=== PATIENT | female | born 1985 ===

== ENCOUNTER 2023-03-01 20:45 | Outpatient (REF) | payer BC, SELFPAY ==
--- OUTSIDE RECORDS SUMMARY | 2023-03-02 10:13 | XMS_ITS | CCD ---
Author Name Unknown Address [address] [place] [address] Organization [facility] Care Team Providers Care Portable Pinch Riveter Name Role Phone WILIAM BOB Referring Unavailable NAKUL RIVAS Referring Unavailable Results Test Name Value Interpretation Reference Range Facil ity Coding Summary.on 10-03-2019 Coding Summary. CODING DATE: 020 [facility] STATUS: Home (Routine DC) PAYOR: [place] ADMIT DX: REASON FOR VISIT DX: M79.10 Myalgia, unspecified site FINAL DX: PRINCIPAL: M79.10 Myalgia, unspecified site SECONDARY: Z11.59 Encounter for screening for other viral diseases PYMT PROC APC STAT DESCRIPTION DOCTOR NAME DATE NOTE: The code number assigned matches the documented diagnosis and / or procedure in the patient's chart. However, the narrative phrase printed from the coding software may appear abbreviated, or result in slightly different terminology. Coded By: Arminda Richey CphT Date Saved: 10/03/2019 10:20 am Normal [facility] Physician Orderon 09-23-2019 Physician Order [id number] D:127 Normal [facility] XR ABDOMEN (KUB) (SINGLE AP VIEW)on 08-15-2018 XR ABDOMEN (KUB) (SINGLE AP VIEW) EXAMINATION: ONE SUPINE XRAY VIEW(S) OF THE ABDOMEN 08/15/2018 2:59 pm COMPARISON: July 10, 2017 HISTORY: ORDERING SYSTEM PROVIDED HISTORY: Renal lithiasis TECHNOLOGIST PROVIDED HISTORY: renal stones FINDINGS: Punctate calcification overlies the lower pole of the left kidney likely unchanged. No abnormally dilated loops of small bowel. IMPRESSION: Punctate nonobstructing left renal calculus likely unchanged. Interpreted by: Brice Brooke MD Signed by: Brice Brooke MD 08/15/18 Final result Normal [facility] Cage Tender Cytology Reporton 2018 Cage Tender Cytology Report Clinical Information Specimen Collection Date: 03-23-18 LMP: 02-28-18 Type of specimen: Cervical/endocervical HPV testing is being performed at [facility] and will be reported out in the laboratory [facility] result section. Purpose of smear: Regular periodic exam/screening Pap. GY Specimen A Liquid Prep Pap Smear, with HPV Adequacy Alpha Response SAT ANATOMICPATHOLOGY Endocervical Alpha Response EC/TZONE + ANATOMICPATHOLOGY Statement of Adequacy Satisfactory for Evaluation. Transformation Zone Present. Diagnosis Alpha Response GY NILM/ORG/GV ANATOMICPATHOLOGY Diagnosis NEGATIVE FOR INTRAEPITHELIAL LESION OR MALIGNANCY Predominance of Coccobacilli consistent with shift in vaginal bibiana (probably Gardnerella vaginalis) [id number] NAL Completed by: FRANCA Aranda (ASCP) (Electronically signed by) 03/27/18 09:46 EST GY Disclaimer Interp The PAP smear is a screening test with an inherent, but low, probability of error. A negative report indicates a low probability of significant cervical pathology. Your patient should be reminded to consult you immediately if she experiences new symptoms and to continue having regular PAP smears in the future. GY Disclaimer Alpha Cage Tender Disclaimer ANATOMICPATHOLOGY Normal [facility] Comment on above: Performed By: #### G YNCYTREP #### [facility] (DEFAULT) [address] [place] [address] HPV DNAon 03-27-2018 HPV DNA Scrn Negative Normal Negative [facility] Comment on above: Result Comment: The APTIMA HPV Assay is an in-vitro nucleic acid amplification test for the qualitative detection of HPV in cervical specimens. The APTIMA HPV Assay should be interpreted in conjunction with other laboratory and clinical data available to the clinician. The APTIMA HPV Assay detects E6/E7 viral messenger RNA (mRNA) of the high-risk HPV types 16, 18, 31, 33, 35, 39, 45, 51, 52, 56, 58, 59, 66, and 68. Detection of high-risk HPV mRNA is dependent on the number of copies present in the specimen and may be affected by specimen collection methods, patient factors, stage of infection, and the presence of interfering substances. Performed By: #### C [id number] #### [facility] [address] [place] [id number] Gynecology Office/Clinic Not pavel 03-23-2018 Gynecology Office/Clinic Note Chief Complaint Annual History of Present Illness Control: Vasectomy Last Menstrual Period: 02/28/18 Frequency of Menstruation: regular Abnormal vaginal discharge: No Breast lumps/pain: No Clotting with periods: No Heavy periods: Yes Hot flashes: No Irregular periods: No Night sweats: No Painful periods: Yes Painful sex: No Pelvic pain: No Spotting: No Vaginal dryness: No Vaginal itch/burning/odor: No Additional HPI details: 32 y/o, G0. PAP 02/18/15, WNL. HX endometriosis. DX lap x 2 2015. She was treated with depo in the past and also with Loestrin but had AUB. Menses Q 28 days, bleeds 5-6 days, 2 heavy days, change tampon Q 1-2 hours, denies clotting, + cramping, takes Tylenol/ibuprofen. Colonoscopy 10/2017, Q 2 years, ulcerative colitis PCP Dr. Jt restrepo [place] Review of Systems Head Headaches: No Migraines: No Cardio Respiratory Heart Irregularity: No Shortness of Breath: No Endocrine Abnormal weight gain: No Abnormal weight loss: No Fatigue: No ENT Congestion: No Nasal drainage: No Sore throat: No Vertigo: No Eyes Corrective lenses: Yes Gastrointestinal Abdominal Pain: No Bloating: No Change in bowel habits: No Reflux/heartburn: No Hematologic/Lymphatic Bleeding tendencies: No Bruising: No Thromboembolism: No Integumentary Acne: No Hair changes: No Lesions: No Moles: No Musculoskeletal Back pain: No Joint pain: No Muscle aches: No Psycho Social Anxiety: No Depression: No Homicidal Ideation: No Sleep Problems: No Suicidal Ideation: No Urinary Nocturia: No Painful urination: No Urgency: No Urinary frequency: No Urinary Incontinence: No Physical Exam Vitals & Measurements BP: 110/78 HT: 166.6 cm WT: 87.1 kg BMI: 31.38 General: Alert and oriented, no acute distress. Eye: PERRL, EOMI, normal conjunctiva. HEENT: Normocephalic, normal hearing, no scleral icterus. Neck: Supple, non-tender, no thyromegaly. Lungs: Clear to auscultation, non-labored respiration. Heart: Normal rate, regular rhythm, no murmur, gallop or edema. Abdomen: Soft, non-tender, non-distended, no masses. Musculoskeletal: Normal range of motion and strength, no tenderness or swelling. Skin: Skin is warm, dry and pink, no rashes or lesions. Neurologic: Awake, alert, and no acute distress. Psychiatric: Cooperative, appropriate mood and affect. Breast exam: no masses, no tenderness, no skin changes or nipple discharge. External Genitalia: normal urethral meatus, no lesions, vulvar skin intact. Genitourinary:Normal vaginal mucosa, + thin, malodorous, white abnormal discharge, cervix intact without lesions or bleeding. No cystocele or rectocele. Pap smear done. Bimanual exam: Normal sized, non-tender, mobile uterus. No adnexal tenderness or masses. Additional Vitals No qualifying data available. Assessment/Plan 1. Encounter for gynecological examination with abnormal finding Ordered: Pathology Pap Smear Request 2. Bacterial vaginitis Ordered: metroNIDAZOLE, 1 tabs, Oral, q12hr, do not drink alcohol, X 7 days, # 14 tabs, 0 Refill(s), 03/30/18 16:02:00 [facility], Pharmacy: [facility] [id number] Physician Comments 1. Recommend monthly self breast exam and call with any changes or concerns. 2. Recommend healthy diet. 3. Recommend exercise 30 min 5 days weekly. 4. Recommend vitamin D 1000-2000IU daily. 5. You will be notified of pap smear results with in 1-2 weeks. Please call the office if you have not been notified with in 2 weeks. 6. Suspect BV. Recommend treatment. Offered Metrogel or Flagyl. She requests Flagyl. Recommend 500mg BID x one week. Avoid alcohol. Problem List/Past Medical History Ongoing Endometriosis Kidney stone Ulcerative colitis Historical No qualifying data Procedure/Surgical History Robotic laparosopy, endometriosis resection,bilat ureterolysis, chromopertubation (05/12/2015), Robotic DX Lap, chromopertubation, ablation of endometriosis, L ovarian cystectomy (01/2012), COLONOSCOPY W/CONTROL BLEED. Medications balsalazide 750 mg oral capsule, 2250 mg, 3 caps, Oral, TID Flagyl 500 mg oral tablet, 500 mg, 1 tabs, Oral, q12hr Allergies predniSONE (Hives) Social History Alcohol Never Home/Environment Single Nutrition/Health Caffeine intake amount: 1 drink daily. Sexual Sexually active: Yes. History of sexual abuse: No. Substance Abuse Denies All Tobacco Never smoker Family History Cancer: Negative: Mother, Father, Grandfather (M), Grandfather (P), Grandmother (M) and Grandmother (P). Diabetes: Mother.Negative: Father, Grandfather (M), Grandfather (P), Grandmother (M) and Grandmother (P). Hyperlipidemia: Father. Hypertension: Mother and Grandmother (M). Kidney stones: Negative: Mother, Father, Grandfather (M), Grandfather (P), Grandmother (M) and Grandmother (P). Electronically signed by ___ Jairo Sanches PA-C 03/23/18 16:06 EST Normal [facility] Ambulatory Patient Education on 03-21-2018 Ambulatory Patient Education Patient Education Materials Name: Mckayla Duarte Current Date: 03/21/2018 15:09:31 [facility] : 1985 The following sheet(s) are the Patient Education Leaflets for Mckayla Duarte Oncology Breast Health: Breast Self-Awareness What is breast self-awareness? Breast self-awareness is knowing how your breasts normally look and feel. Your breasts change as you go through different stages of your life. So it's important to learn what is normal for your breasts. Breast self-awareness helps you notice any changes in your breasts right away. Report any changes to your healthcare provider. Why is breast self-awareness important? Many experts now say that women should focus on breast self-awareness instead of doing a breast self-examination (BSE). These experts include the [place] [employer], the U.S. Preventive Services Task Force, and the [place] [employer] of Obstetricians and Gynecologists. Some experts even advise not teaching women to do a BSE. That's because research hasn't shown a clear benefit to doing BSEs. Breast self-awareness is different than a BSE. Breast self-awareness isn't about following a certain method and schedule. It's about knowing what's normal for your breasts. That way you can notice even small changes right away. If you see any changes, report them to your healthcare provider. Changes to look for Call your healthcare provider if you find any changes in your breasts that concern you. These changes may include: ? A lump ? Nipple discharge other than breastmilk, especially a bloody discharge ? Swelling ? A change in size or shape ? Skin irritation, such as redness, thickening, or dimpling of the skin ? Swollen lymph nodes in the armpit ? Nipple problems, such as pain or redness If you find a lump Contact your provider if you find lumpiness in one breast, feel something different in the tissue, or feel a definite lump. Sometimes lumpiness may be due to menstrual changes. But there may be reason for concern. Your provider may want to see you right away if you have: ? Nipple discharge that is bloody ? Skin changes on your breast, such as dimpling or puckering It's normal to be upset if you find a lump. But it's important to contact your provider right away. Remember that most breast lumps are benign. This means they are not cancer. ? 1200-4608 [employer]. [address] [place], [place] [address]. All rights reserved. This information is not intended as a substitute for professional medical care. Always follow your healthcare professional's instructions. Normal [facility] Encounters Encounter Date Encounter Type Care Provider Facility Start: 08-15-2018 End: 08-18-2018 Patient encounter procedure WILIAM BOB [facility] Procedures Date Procedure Procedure Detail Performing Clinician Start: 08-15-2018 Radiologic exam abdo men 1 view WILIAM BOB Payers Date Payer Category Payer Unknown [id number] 1985 Unknown [id number] 1985 Unknown [id number] Summary Purpose Family History No Family History Records FoundNo Family History Records FoundNo Family History Records Found Advance Directives No Advanced Directives Records FoundNo Advanced Directives Records FoundNo Advanced Directives Records Found Additional Source Comments INFORMATION SOURCE (unrecogn ized section and content) DATE CREATED AUTHOR 08/18/2018 Sophia Linares [facility] DATE CREATED AUTHOR AUTHOR'S ORGANIZ ATION 01/11/2019 [facility] DATE CREATED AUTHOR AUTHOR'S ORGANIZ ATION 10/06/2019 [facility] FOR RECORDS PERTAINING TO PATIENTS WHO ARE OR HAVE BEEN ENROLLED IN A CHEMICAL DEPENDENCY/SUBSTANCEABUSE PROGRAM, SOME INFORMATION MAY BE OMITTED. This clinical summary was aggregated from multiple sources. Caution should be exercised in using it in the provision of clinical care. This summary normalizes information from multiple sources, and as a consequence, information in this document may materially change the coding, format and clinical context of patient data. In addition, data may be omitted in some cases. CLINICAL DECISIONS SHOULD BE BASED ON THE PRIMARY CLINICAL RECORDS. [facility] [employer] [facility]. provides no warranty or guarantee of the accuracy or completeness of information in this document.
[2023-03-08 11:08] LABS: Age Gdln ACOG Testing Note (.); HPV Aptima Negative (Negative); IGP, Aptima HPV, rfx 16/18,45 Note (.)
== END 2023-03-01 20:46 | disposition home or self-care (01) ==
LOC: LAB 20:45
PROVIDERS: Visit Provider Obstetrics & Gynecology
DX: Z01.419 Encounter for gynecological examination (general) (routine) without abnormal findings (principal)
CPT/HCPCS: 87624; G0145

== ENCOUNTER 2023-03-16 08:00 | Outpatient (OUT) | payer BC, SELFPAY ==
--- NOTE | 2023-03-16 08:02 | US_ITS ---
The [place] [id number] Patient Name: MCKAYLA VELAZQUEZ MRN: [id number] date: 1985 Sex: F Assigned Patient Location: Current Patient Location: [place] Accession/Order Number: [id number] Exam Date: 03/16/2023 08:01 Report Date: 03/16/2023 09:06 At the request of: CHAUNCEY WHALYE Procedure: US pelvis w/ transvaginal EXAMINATION: US pelvis w/ transvaginal HISTORY: DYSMENORRHEA COMPARISON: No relevant comparison available. FINDINGS: The uterus is normal in size, contour and myometrial echotexture measuring 7.0 x 3.3 x 5.3 cm. No focal myometrial mass The endometrium measures 8 mm, normal. The right ovary is normal in size and echotexture 2.7 x 1.5 x 2.3 cm. Normal color and Doppler flow. Area of anechoic echogenicity measuring 3.0 x 2.3 x 2.9 cm adjacent to the right ovary The left ovary is normal in size, contour and echotexture measuring 3.2 x 1.9 x 1.9 cm. Normal color and Doppler flow. No free fluid US/US pelvis w/ transvaginal IMPRESSION: 3 cm right ovarian simple cyst Electronically authenticated by: NELIDA TOMLINSON Date: 03/16/2023 09:06
--- OUTSIDE RECORDS SUMMARY | 2023-03-16 08:03 | XMS_ITS | CCD ---
Author Name Unknown Address [address] [place] [address] Organization [facility] Care Team Providers Care Severity Of Illness Coordinator Name Role Phone WILIAM BOB Referring Unavailable NAKUL RIVAS Referring Unavailable CHAUNCEY WHALEY Attending Unavailable Results Test Name Value Interpretation Reference Range Facil ity Coding Summary.on 10-03-2019 Coding Summary. CODING DATE: 020 FINAL [facility] STATUS: Home (Routine DC) PAYOR: [place] ADMIT DX: REASON FOR VISIT DX: M79.10 [...] CphT Date Saved: 10/03/2019 10:20 am Normal [facility] Physician Orderon 09-23-2019 Physician Order [id number] D:127 Normal [facility] XR ABDOMEN (KUB) (SINGLE AP VIEW)on [...] Brice Brooke MD 08/15/18 Final result Normal [facility] Admissions Consultant Cytology Reporton 2018 Admissions Consultant Cytology Report Clinical Information Specimen Collection Date: 03-23-18 LMP: 02-28-18 Type of specimen: Cervical/endocervical HPV testing is being performed at [facility] and will be reported out in the [...] shift in vaginal bibiana (probably Gardnerella vaginalis) [id number] [id number] Completed by: FRANCA Aranda (ASCP) (Electronically [...] smears in the future. GY Disclaimer Alpha Admissions Consultant Disclaimer ANATOMICPATHOLOGY Normal [facility] Comment on above: Performed By: #### G YNCYTREP #### [facility] (DEFAULT) [address] [place] [address] HPV DNAon 03-27-2018 HPV DNA Scrn Negative Normal Negative [facility] Comment on above: Result Comment: The APTIMA [...] of interfering substances. Performed By: #### C [id number] #### [facility] [address] [place] [address] Gynecology Office/Clinic Not pavel 03-23-2018 Gynecology Office/Clinic [...] years, ulcerative colitis PCP Dr. Jt restrepo [place] Review of Systems Head Headaches: No Migraines: [...] # 14 tabs, 0 Refill(s), 03/30/18 16:02:00 [facility], [facility] [id number] Physician Comments 1. Recommend monthly self breast [...] Jairo Sanches PA-C 03/23/18 16:06 EST Normal [facility] Ambulatory Patient Education on 03-21-2018 Ambulatory Patient Education Patient Education Materials Name: Mckayla Duarte Current Date: 03/21/2018 15:09:31 [facility] : 1985 The following sheet(s) are the [...] breast self-examination (BSE). These experts include the [place] [employer], the U.S. Preventive Services Task Force, and the [place] [employer] of Obstetricians and Gynecologists. Some experts [...] This means they are not cancer. ? [phone] [employer]. [address] [place] [address]. All rights reserved. This information is not intended as a substitute for professional medical care. Always follow your healthcare professional's instructions. Normal [facility] Encounters Encounter Date Encounter Type Care Provider Facility Start: 03-01-2023 End: 03-01-2023 ambulatory CHAUNCEY WHALEY Not Available Start: 08-15-2018 End: 08-18-2018 Patient encounter procedure WILIAM BOB [facility] Procedures Date Procedure Procedure Detail Performing Clinician Start: 08-15-2018 Radiologic exam abdo men 1 view WILIAM BOB Payers Date Payer Category Payer Unknown [id number] 2016 Unknown [id number] 1985 Unknown [id number] 1985 Unknown [id number] 1985 Unknown [id number] Summary Purpose Family History No Family History Records FoundNo Family History Records FoundNo Family History Records FoundNo Family History Records Found Advance Directives No Advanced Directives Records FoundNo Advanced Directives Records FoundNo Advanced Directives Records FoundNo Advanced Directives Records Found Additional Source Comments INFORMATION SOURCE (unrecogn ized section and content) DATE CREATED AUTHOR 08/18/2018 [facility] DATE CREATED AUTHOR AUTHOR'S ORGANIZ ATION 01/11/2019 [facility] DATE CREATED AUTHOR AUTHOR'S ORGANIZ ATION 10/06/2019 [facility] DATE CREATED AUTHOR AUTHOR'S ORGANIZ ATION 03/02/2023 [facility] Specialists EPIC FOR RECORDS PERTAINING TO PATIENTS WHO ARE [...] BE BASED ON THE PRIMARY CLINICAL RECORDS. [employer] [facility]. provides no warranty or guarantee of the accuracy or completeness of information in this document.
== END 2023-03-16 08:01 | disposition home or self-care (01) ==
LOC: US 08:00
PROVIDERS: PCP Preventive Medicine Occupational Medicine; Visit Provider Obstetrics & Gynecology
DX: N92.1 Excessive and frequent menstruation with irregular cycle (principal); N94.6 Dysmenorrhea, unspecified; N83.291 Other ovarian cyst, right side
CPT/HCPCS: 76830; 76856